=== PATIENT | male | born 1980 | race Two or more races ===

== ENCOUNTER 2024-08-31 14:19 | Outpatient (RCR) | payer MEDICAID, SELFPAY ==
--- NOTE | 2024-09-10 19:41 | CTCFLWUP_ITS ---
Patient: VIKKI LOWE : 1980 Page 5 of 7 FOLLOW UP NOTE DATE OF SERVICE: 08/31/2024 NAME: VIKKI LOWE ACCOUNT: [id number] : 1980 AGE: 44 INTERVAL HISTORY: Patient have no new symptoms. Denies any weight loss or appetite changes. Patient was only seen by Dr. Dover. ONCOLOGY HISTORY: DIAGNOSIS: Stage 1 ([place]) chronic lymphocytic leukemia, normal FISH CLL panel. TP53 unmutated, Ig VH somatic hyper mutation positive. DATE OF DIAGNOSIS: 09/07/2023 STAGE/TNM: CLL stage I TREATMENT HISTORY: Care?Plan Start?Date Cycle Day Intent HISTORY OF PRESENT ILLNESS: Mr. Lowe is a 44-year-old Kazakh speaking, Burundian male without any significant past medical history has the following oncology history. 07/16/2023: WBC 25.8, absolute lymphocyte count 18.7, hemoglobin 15.4, MCV 88, platelets 224,000, 07/29/2023: WBC 34.8, absolute lymphocyte count 27.6, hemoglobin 15.6, MCV 87, platelets 245,000. 09/07/2023: WBC 31.6, absolute lymphocyte count 24.9, hemoglobin 15.4, platelets 225,000. Flow cytometry? CLL FISH panel? 10/19/2023: CT scan of the chest abdomen and pelvis with IV contrast 11/22/2023: Quantitative immunoglobulin levels Ig VH analysis 03/14/2024: WBC 14.8, absolute lymphocyte count 39.9, hemoglobin 15.5, MCV 93, platelets 221,000. OTHER MEDICAL HISTORY/CONDITIONS: Denies Left?eye?surgery?=?3?yrs?ago FAMILY HISTORY: Sibling: Brother - Brain tumor - dx age 37 SOCIAL HISTORY: Occupational?History:?[employer] Education?Level:?Completed 9th grade Marital?Status:? Tobacco Use:?Smokes 7-8 cigarettes/day x 25 yrs - still smoking ETOH?Use:?Denies Drug?Note:?Denies Social History Note:?Lives with and children MEDICATIONS: 1. None Medications Last Reconciled by Jennifer Varela MA on 08/31/2024 ALLERGIES: No Known Drug Allergies REVIEW OF SYSTEMS: A complete 14-point review of systems was performed and is negative except as noted in interval history. PHYSICAL EXAMINATION: VITAL SIGNS: Temperature?98.5, B/P?126/83, Oxygen?Saturation?97% Weight?213.8?lbs PAIN: 0 - No pain GENERAL APPEARANCE: Appears well, in no apparent distress, appropriately interactive. HEENT: Normocephalic, no temporal wasting, normal conjunctiva, no scleral icterus, normal hearing, lips without lesions, neck normal range of motion. CARDIOVASCULAR: Not assessed. PULMONARY: Normal respiratory effort, no respiratory distress or use of accessory muscles, speaking in full sentences, no tachypnea. EXTREMITIES: No pedal edema or cyanosis. SKIN: Normal skin appearance. NEUROLOGIC: Alert and oriented x4. PSHYCHIATRIC: Appropriate affect, mood normal, behavior normal, intact thought and speech. LABORATORY DATA: I have personally reviewed and interpreted each of the patient?s relevant lab tests, abnormal findings are below: Date ASSESSMENT/PLAN: 1. Stage 1 ([place]) chronic lymphocytic leukemia, normal FISH CLL panel. TP53 unmutated, Ig VH somatic hyper mutation positive. 2. Patient continues to remain asymptomatic. 3. Mr. Lowe is a progressively having increase in his WBC count 4. recent CT scan showed bilateral small axillary lymph nodes as well as small para-aortic pericaval lymph nodes as well as hepatosplenomegaly. 5. Continues to smoke cigarettes 1. Since the patient is symptomatic I do not think treatment is warranted at this time. 2. Patient follows with leukemia specialist, Dr. Janie Mccoy of [place] for second opinion in view of his younger age. 3. I have advised him to stop smoking cigarettes. 4. I will see him back in clinic in 3 months with CBC, CMP done prior to the visit. CBC CMP LDH RETURN TO CLINIC: I will see him back in the clinic in 3 months. BILLING AND COMPLIANCE: I reviewed external records from providers outside my specialty as summarized above. I spent a total of 50 minutes on this patient?s care on the day of their visit excluding time spent related to any billed procedures. This time includes time spent with the patient as well as time spent documenting in the medical record, reviewing patients records and tests, obtaining history, placing orders, communicating with other healthcare professionals, counseling the patient, family or caregiver, and/or care coordination for the diagnoses above. Electronically Signed by: Chris Auguste MD T: 7:39 PM CC: PCP: Referring: Jay Benoit This document was completed utilizing speech recognition software. Grammatical errors, random word insertions, pronoun errors, and incomplete sentences are an occasional consequence of this system due to software limitations, ambient noise, and hardware issues. Any formal questions or concerns about the content, text or information contained within the body of this dictation should be directly addressed to the provider for clarification.
== END 2024-09-08 23:59 | disposition home or self-care (01) ==
LOC: SCTC 14:19
PROVIDERS: PCP Family Medicine; Referring Provider Family Medicine; Visit Provider Internal Medicine Hematology & Oncology
DX: C91.10 Chronic lymphocytic leukemia of B-cell type not having achieved remission (principal); R16.2 Hepatomegaly with splenomegaly, not elsewhere classified; F17.210 Nicotine dependence, cigarettes, uncomplicated; R59.0 Localized enlarged lymph nodes
CPT/HCPCS: 99212; G0463

== ENCOUNTER 2024-10-30 11:34 | Outpatient (RCR) | payer MEDICAID, SELFPAY ==
--- NOTE | 2024-10-31 01:39 | CTCFLWUP_ITS ---
Patient: VIKKI LOWE : 1980 Page 5 of 7 FOLLOW UP NOTE DATE OF SERVICE: 10/30/2024 NAME: VIKKI LOWE ACCOUNT: [id number] : 1980 AGE: 44 INTERVAL HISTORY: Patient have no new symptoms. Denies any weight loss or appetite changes. Patient was only seen by Dr. Dover. ONCOLOGY HISTORY: DIAGNOSIS: Stage 1 ([place]) chronic lymphocytic leukemia, normal FISH CLL panel. TP53 unmutated, Ig VH somatic hyper mutation positive. DATE OF DIAGNOSIS: 09/07/2023 STAGE/TNM: CLL stage I TREATMENT HISTORY: Care?Plan Start?Date Cycle Day Intent HISTORY OF PRESENT ILLNESS: Mr. Lowe is a 44-year-old Bengali speaking, Yemeni male without any significant past medical history has the following oncology history. 07/16/2023: WBC 25.8, absolute lymphocyte count 18.7, hemoglobin 15.4, MCV 88, platelets 224,000, 07/29/2023: WBC 34.8, absolute lymphocyte count 27.6, hemoglobin 15.6, MCV 87, platelets 245,000. 09/07/2023: WBC 31.6, absolute lymphocyte count 24.9, hemoglobin 15.4, platelets 225,000. Flow cytometry? CLL FISH panel? 10/19/2023: CT scan of the chest abdomen and pelvis with IV contrast 11/22/2023: Quantitative immunoglobulin levels Ig VH analysis 03/14/2024: WBC 14.8, absolute lymphocyte count 39.9, hemoglobin 15.5, MCV 93, platelets 221,000. OTHER MEDICAL HISTORY/CONDITIONS: Denies Left?eye?surgery?=?3?yrs?ago FAMILY HISTORY: Sibling: Brother - Brain tumor - dx age 37 SOCIAL HISTORY: Occupational?History:?[employer] Education?Level:?Completed 9th grade Marital?Status:? Tobacco Use:?Smokes 7-8 cigarettes/day x 25 yrs - still smoking ETOH?Use:?Denies Drug?Note:?Denies Social History Note:?Lives with and children MEDICATIONS: 1. None Medications Last Reconciled by Yolette Watson MA on 10/30/2024 ALLERGIES: No Known Drug Allergies REVIEW OF SYSTEMS: A complete 14-point review of systems was performed and is negative except as noted in interval history. PHYSICAL EXAMINATION: VITAL SIGNS: Temperature?98.2, B/P?129/81, Oxygen?Saturation?97% Weight?214?lbs PAIN: 0 - No pain GENERAL APPEARANCE: Appears well, in no apparent distress, appropriately interactive. HEENT: Normocephalic, no temporal wasting, normal conjunctiva, no scleral icterus, normal hearing, lips without lesions, neck normal range of motion. CARDIOVASCULAR: Not assessed. PULMONARY: Normal respiratory effort, no respiratory distress or use of accessory muscles, speaking in full sentences, no tachypnea. EXTREMITIES: No pedal edema or cyanosis. SKIN: Normal skin appearance. NEUROLOGIC: Alert and oriented x4. PSHYCHIATRIC: Appropriate affect, mood normal, behavior normal, intact thought and speech. LABORATORY DATA: I have personally reviewed and interpreted each of the patient?s relevant lab tests, abnormal findings are below: Date ASSESSMENT/PLAN: 1. Stage 1 ([place]) chronic lymphocytic leukemia, normal FISH CLL panel. TP53 unmutated, Ig VH somatic hyper mutation positive. 2. Patient continues to remain asymptomatic. 3. Mr. Lowe is a progressively having increase in his WBC count 4. recent CT scan showed bilateral small axillary lymph nodes as well as small para-aortic pericaval lymph nodes as well as hepatosplenomegaly. 5. Continues to smoke cigarettes 1. Since the patient is symptomatic I do not think treatment is warranted at this time. 2. Bone marrow showed 66 percent cancer cells 3. I have advised him to stop smoking cigarettes. 4. I will see him back in clinic in 3 months with CBC, CMP done prior to the visit. CBC CMP LDH ORDERS: Order # Description [id number] Comprehensive Metabolic Panel - 12 + CBC with Auto Diff + Uric Acid, Serum [id number] Lactate Dehydrogenase (LDH) [id number] MD Follow Up 1 Year [id number] MD Follow Up 3 Months [id number] RETURN TO CLINIC: 3months with MUTUEL CLERK for lab check BILLING AND COMPLIANCE: I reviewed external records from providers outside my specialty as summarized above. I spent a total of 50 minutes on this patient?s care on the day of their visit excluding time spent related to any billed procedures. This time includes time spent with the patient as well as time spent documenting in the medical record, reviewing patients records and tests, obtaining history, placing orders, communicating with other healthcare professionals, counseling the patient, family or caregiver, and/or care coordination for the diagnoses above. Electronically Signed by: Chris Auguste MD T: 1:37 AM CC: PCP: Referring: Chris Auguste This document was completed utilizing speech recognition software. Grammatical errors, random word insertions, pronoun errors, and incomplete sentences are an occasional consequence of this system due to software limitations, ambient noise, and hardware issues. Any formal questions or concerns about the content, text or information contained within the body of this dictation should be directly addressed to the provider for clarification.
== END 2024-11-06 23:59 | disposition home or self-care (01) ==
LOC: SCTC 11:34
PROVIDERS: Referring Provider Internal Medicine Hematology & Oncology; Visit Provider Internal Medicine Hematology & Oncology
DX: C91.10 Chronic lymphocytic leukemia of B-cell type not having achieved remission (principal); R16.2 Hepatomegaly with splenomegaly, not elsewhere classified; F17.210 Nicotine dependence, cigarettes, uncomplicated; Z71.6 Tobacco abuse counseling
CPT/HCPCS: 99212; G0463

== ENCOUNTER 2024-12-08 18:03 | Emergency (ER) | payer MEDICAID, SELFPAY ==
[2024-12-08 18:41] VITALS: BP 103/65; PULSE 103; RESP 18; TEMP 39.1; O2SAT 95; BMI 29.6
--- NOTE | 2024-12-08 18:52 | XR_ITS ---
Examination: CT chest with intravenous contrast CT abdomen with intravenous contrast CT pelvis with intravenous contrast 2-D coronal and sagittal reconstructions Time of exam: December 08, [address] chest abdomen pelvis October 19, 2023 INDICATIONS: Diagnosis leukemia, fever chills today CTDI: vol (mGy) : 7.98 DLP: (mGycm): 645 Technique: Multiple axial images of the chest, abdomen and pelvis with intravenous contrast, 3.0 mm slice thickness. Images obtained post intravenous injection Isovue 370 60 cc. 2-D sagittal and coronal reconstructions. Low dose protocols were performed. One or more of the following dose reduction techniques were used; automated exposure control, adjustment of the mA and/or KV according to patient size, use of iterative reconstruction technique. Findings: No thoracic aortic aneurysm dilatation Pulmonary artery segments are not enlarged Pulmonary artery opacification is poor Mild opacity in the mid and lower lung zones consistent with pneumonia Hepatomegaly 20 exam, splenomegaly 17 exam Contracted gallbladder No pancreatic or adrenal mass No renal or ureteral calculi, lower pole benign right renal cyst Numerous mesenteric pericaval periaortic pelvic lymph nodes which are more prominent compared to the prior study Mild small bowel ileus versus enteritis No bowel obstruction Normal appendix No diverticulitis Mild thickening urinary bladder wall No prostatomegaly Fat-containing hernias Moderate osteopenia IMPRESSION: Pneumonia in the mid and lower lung zones bilaterally Significant hepatosplenomegaly More prominent mesenteric abdominal and pelvic lymphadenopathy compared to October 19, 2023 No abdominal or pelvic abscess
--- NOTE | 2024-12-08 19:01 | EDNOTE_ITS ---
<Statement entered by Little Baca MD - 12/10/24 04:27> As co-signing physician, I was present and available for consult prn. I concur with the plan and care as documented by the midlevel provider. ED Back Injury Pain RME/HPI General Chief Complaint: Abdominal Pain Stated Complaint: ABD PAIN, FEVER X 2 DAYS Time Seen by Provider: 12/08/24 18:54 Arrival date/time: 12/08/24 18:03 44M with history of CLL presents to ED with 2 days of back pain and fevers/chills and some N/V. Patient denies ab pain, diarrhea, and dysuria, as well as URI symptoms. Limitations: no limitations Related Data Previous Rx's ?Medication ?Instructions ?Recorded doxycycline hyclate 100 mg capsule 100 mg PO BID #14 c aps 03/01/23 amoxicillin 875 mg-potassium 1 tab PO BID 7 days #14 t abs 12/08/24 clavulanate 125 mg tablet doxycycline hyclate 100 mg tablet 100 mg PO BID 7 days #14 tabs 12/08/24 Allergies Allergy/AdvReac Type Severity Reaction Status Date / Time No Known Allergies Allergy Verified 12/08/24 18:05 Review of Systems Review of Systems Systems Reviewed: All systems reviewed, normal except as documented Constitutional Constitutional: Reports system reviewed and no additional complaints, except as documented, Reports as per HPI, Reports chills, Reports fever(s) and Denies headache(s) ENT Ears, Nose, Mouth, and Throat: Denies disequilibrium and Denies headache(s) Cardiovascular Cardiovascular: Reports system reviewed and no additional complaints, except as documented, Denies chest pain and Denies dyspnea Respiratory Respiratory: Reports system reviewed and no additional complaints, except as documented, Denies cough and Denies dyspnea Gastrointestinal Gastrointestinal: Reports system reviewed and no additional complaints, except as documented, Denies abdominal pain, Denies nausea and Denies vomiting Musculoskeletal Musculoskeletal: Reports as per HPI and Reports back pain Neurologic Neurologic: Reports system reviewed and no additional complaints, except as documented, Denies confusion, Denies disequilibrium and Denies headache(s) Psychiatric Psychiatric: Denies confusion Past Medical History Past Medical History HEMATOLOGIC: Positive Leukemia Social History SMOKING STATUS: Never smoker ED Exam General Limitations: Present no limitations General appearance: Present alert and in no apparent distress Head Head exam: Present atraumatic Eye Eye exam: Present normal appearance, PERRL and EOMI ENT ENT exam: Present normal exam, normal oropharynx and mucous membranes moist Neck Neck exam: Present normal inspection, full ROM and trachea midline Chest Chest inspection: Present normal inspection and symmetric chest wall rise Respiratory Respiratory exam: Present normal lung sounds bilaterally Cardiovascular Cardiovascular exam: Present regular rate, normal rhythm and normal heart sounds Abdominal Exam Abdominal exam: Present soft and normal bowel sounds Extremities Exam Extremities exam: Present normal inspection and full ROM Back Exam Back exam: Present full ROM and tenderness Neurological Exam Neurological exam: Present alert, oriented X3 and CN II-XII intact Psychiatric Psychiatric exam: Present normal affect and normal mood Skin Skin exam: Present warm, dry, intact and normal color Course Quality Measures none Orders Category Date Time Status Bedside COVID-19 Antigen Test NOW Care 12/08/24 18:52 Completed Bedside Influenza A&B Antigen Test NOW Care 12/08/24 18:[address] Screening NOW Care 12/08/24 18:52 Completed Insert IV NOW Care 12/08/24 18:[address] chest abdomen pelvis w Stat Exams 12/08/24 18:52 Completed Blood Culture (Lab) Stat Lab 12/08/24 19:09 Received CBC Stat Lab 12/08/24 19:09 Completed CMP [Comprehensive Metabolic Panel] Stat Lab 12/08/24 19:09 Completed Drug Screen,Urine Stat Lab 12/08/24 22:45 Completed Lactate (Lactic Acid) Stat Lab 12/08/24 19:09 Completed Path Review Blood Smear Stat Lab 12/08/24 19:09 Completed Procalcitonin Stat Lab 12/08/24 19:09 Completed UA [Urinalysis] Stat Lab 12/08/24 22:45 Completed Urine Culture Stat Lab 12/08/24 22:45 Received Acetaminophen Tab [Tylenol ES Tab] Med 12/08/24 18:52 Discontinued 500 mg PO X1 ONE Doxycycline Inj [Vibramycin Inj] 100 mg Med 12/08/24 23:22 Discontinued Sodium Chloride 0.9% (Pop) [NS 0.9% mini bag] 100 ml IV X1 Ketorolac Inj [Toradol Inj] Med 12/08/24 18:52 Discontinued 30 mg IVP X1 ONE Morphine Inj Med 12/08/24 21:18 Discontinued 5 mg IVP X1 ONE Piper/Tazo 3.375 gm Premix [Zosyn] Med 12/08/24 18:53 Discontinued 3.375 gm in 50 ml IV X1 Sodium Chloride 0.9% 1000 ml [Ns] 1,000 ml Med 12/08/24 18:52 Discontinued IV 999 mls/hr Sodium Chloride 0.9% 1000 ml [Ns] 1,000 ml Med 12/08/24 22:30 Discontinued IV 999 mls/hr Vital Signs Vital signs: Vital Signs Temperature 102.4 F H 12/08/24 18:41 Pulse Rate 103 H 12/08/24 18:41 Respiratory Rate 18 12/08/24 18:41 Blood Pressure 103/65 12/08/24 18:41 Pulse Oximetry (%) 95 12/08/24 18:41 Oxygen Delivery Method Room Air 12/08/24 18:41 O2 at 95% on RA and WNLs Back Pain / Injury MDM Narrative MDM Narrative:: 44M with history of CLL presents to ED with 2 days of back pain and fevers/chills and some N/V. Patient denies ab pain, diarrhea, and dysuria, as well as URI symptoms. Physical exam reveals flank pain. Patient is febrile, but does not appear toxic. Sepsis alert called. CT reveals PNA. Significant leukocytosis, likely from acute infection compounding on existing CLL. Procal/lactate normal. CMP unremarkable. UA clean. Upon reassessment, patient is feeling better after meds. Patient does not want to be admitted. Scrap Collector and meds given. Patient data External records reviewed:: [facility] previous records Clinical information provided by:: patient Social determinants that could affect healthcare access:: none Patient has the following chronic illnesses:: CLL How is presenting disease/condition affected by chronic disease/condition?: exacerbated by Evaluation data The following diagnostics were reviewed and interpreted by me:: lab results and radiology exam(s) Lab and/or radiology exams considered but not ordered:: ordered Interpretation Summary: above Medications / Prescriptions Medications or Prescriptions considered but not ordered:: ordered Medication administrations:: Medication Administration History Discontinued Medications Acetaminophen (Acetaminophen 500 Mg Tablet) 500 mg PO X1 ONE Stop: 12/08/24 18:53 Last Admin: 12/08/24 20:33 Dose: 500 mg Documented By: JADA Sodium Chloride (Ns) 1,000 mls @ 999 mls/hr IV .Q1H1M ONE Stop: 12/08/24 19:52 Last Infusion: 12/08/24 21:58 Dose: Infused Documented By: Admin: 12/08/24 20:29 Dose: 999 mls/hr Documented By: JADA Piperacillin/Tazobactam/Dextrose (Zosyn) 3.375 gm in 50 mls @ 100 mls/hr IV X1 ONE Stop: 12/08/24 19:22 Last Infusion: 12/08/24 21:08 Dose: Infused Documented By: Admin: 12/08/24 20:30 Dose: 100 mls/hr Documented By: JADA Sodium Chloride (Ns) 1,000 mls @ 999 mls/hr IV .Q1H1M ONE Stop: 12/08/24 23:30 Last Infusion: 12/08/24 23:55 Dose: Infused Documented By: Admin: 12/08/24 22:51 Dose: 999 mls/hr Documented By: JADA Doxycycline Hyclate 100 mg/ (Sodium Chloride) 100 mls @ 100 mls/hr IV X1 ONE Stop: 12/09/24 00:21 Last Infusion: 12/09/24 00:42 Dose: Infused Documented By: Admin: 12/08/24 23:36 Dose: 100 mls/hr Documented By: Ketorolac Tromethamine (Ketorolac Inj 30 Mg/Ml Vial) 30 mg IVP X1 ONE Stop: 12/08/24 18:53 Last Admin: 12/08/24 20:34 Dose: 30 mg Documented By: JADA Morphine Sulfate (Morphine Sulf Inj 10 Mg/Ml Vial) 5 mg IVP X1 ONE Stop: 12/08/24 21:19 Last Admin: 12/08/24 21:55 Dose: 5 mg Documented By: JADA above Consultations Consultation(s) initiated? (list below): No Diagnosis Differential diagnosis back pain/injury: lumbar radiculopathy, sciatica, strain of lumbar region, renal colic, pyelonephritis, thoracic back pain, AAA, discitis and other (PNA) Most likely diagnosis given after review of the tests above:: PNA Admission Indicated Admission indicated?: not indicated Admission Request Was there a request for admission?: No Disposition Plan Disposition Plan: Discharge Discharge Attestation Discharge Attestation: The patient and all family members were given an opportunity to ask questions and understood the discharge instructions. Discharge instructions specifically effects, indications for sooner follow up or return to the emergency department, and the expected course of current diagnosis. Patient condition: Stable Discharge Plan Plan Patient Disposition: HOME (Self Care) Discharge Disposition comment: Stable Prescriptions/Referrals Prescriptions/Med Rec: New amoxicillin-pot clavulanate 875-125 mg tablet 1 tab PO BID 7 Days Qty: 14 0RF doxycycline hyclate 100 mg tablet 100 mg PO BID 7 Days Qty: 14 0RF No Action doxycycline hyclate 100 mg capsule 100 mg PO BID Qty: 14 0RF Referrals: Chris Auguste MD [Primary Care Provider] - In 1 week Problem List Clinical Impression: Pneumonia Patient/Caregiver Discharge Instructions Education Materials: ED Pneumonia (Adult) Additional Instructions: Please follow-up with PCP within 24-48 hours and return immediately if symptoms worsen. Print Language: Latvian Stand Alone Forms: Patient Portal Info Letter HILARIA/DORA Supervising Physician HILARIA/DORA Supervising Physician: Dr. Baca
[2024-12-08 19:20] VITALS: BP 114/67; PULSE 95; RESP 19; TEMP 37.6; O2SAT 92
[2024-12-08 19:20] LABS: Lactate (Lactic Acid) 0.9 mMol/L (0.4-2.0)
[2024-12-08 19:24] LABS: Basophils # (Auto) 0.2 Thou/mm3 (0.0-0.2); Basophils % (Auto) 0 % (0-2.5); Eosinophils # (Auto) 0.1 Thou/mm3 (0.0-0.5); Eosinophils % (Auto) 0 % (0-10); Hematocrit 40.9 % (41.0-53.0); Hemoglobin 14.1 g/dL (13.5-16.0); Immature Granulocytes % (Auto) 0 % (0-0); Immature Granulocytes Auto 0.15 Thou/mm3 (0.00-0.00); Lymphocytes # (Auto) 37.6 Thou/mm3 (1.0-4.8); Lymphocytes % (Auto) 80 % (10-50); Mean Corpuscular HGB Conc 34.5 g/dl (31.0-37.0); Mean Corpuscular Hemoglobin 29.6 pg (25.0-35.0); Mean Corpuscular Volume 86 fL (80-100); Monocytes # (Auto) 2.5 Thou/mm3 (0.0-0.8); Monocytes % (Auto) 5 % (0-12); Neutrophils # (Auto) 6.4 Thou/mm3 (1.8-7.7); Neutrophils % (Auto) 14 % (37-80); Nucleated Red Blood Cell % 0 /100 WBC (0); Platelet Count 156 Thou/mm3 (140-440); RDW Standard Deviation 43.5 fL (35.1-43.9); Red Blood Count 4.77 Miln/mm3 (4.50-5.90)
[2024-12-08 19:53] LABS: White Blood Count 46.8 Thou/mm3 (3.8-10.6)
[2024-12-08 19:58] LABS: Alanine Aminotransferase 20 U/L (10-49); Albumin, Serum 4.7 gm/dL (3.5-5.0); Albumin/Globulin Ratio 2.1 (1.2-2.2); Alkaline Phosphatase 50 U/L (46-116); Anion Gap 5 (7-16); Aspartate Amino Transferase 20 U/L (0-34); BUN/Creatinine Ratio 13 Ratio (12-20); Bilirubin,Total 0.4 mg/dL (0.3-1.2); Blood Urea Nitrogen 14 mg/dL (9-23); Calcium 9.4 mg/dL (8.3-10.6); Calcium (Corrected) 9.4 mg/dL (8.5-10.1); Carbon Dioxide 23.9 mMol/L (20.0-31.0); Chloride 106 mMol/L (98-107); Creatinine (Component) 1.1 mg/dL (0.6-1.3); Estimated Creatinine Clearance 100.5 mL/min (>60); Globulin 2.2 gm/dL (2.3-3.5); Glucose 107 mg/dL (74-106); Osmolality,Calculated 270 (275-295); Potassium 4.3 mMol/L (3.4-5.1); Procalcitonin 0.17 ng/ml (0.0-0.49); Sodium 135 mMol/L (136-145); Total Protein 6.9 gm/dL (5.7-8.2); eGFR > 60 See Note
[2024-12-08] MEDS: SODIUM CHLORIDE 0.9% 1000 ML 1,000 ML 999 ML IV ×2 (20:29→22:51)
[2024-12-08] MEDS: PIPER/TAZO 3.375 GM PREMIX 3.375 GM/50 ML BAG IV (20:30)
[2024-12-08] MEDS: ACETAMINOPHEN 500 MG TABLET PO (20:33)
[2024-12-08] MEDS: KETOROLAC INJ 30 MG/ML VIAL IVP (20:34)
[2024-12-08 20:45] LABS: Path Review Blood Smear Sent to Pathologist
[2024-12-08 20:59] VITALS: BP 114/73; PULSE 85; RESP 18; TEMP 37.7; O2SAT 96
[2024-12-08] MEDS: MORPHINE SULF INJ 10 MG/ML VIAL 5 MG IVP (21:55)
[2024-12-08 22:49] LABS: Collection Type, Urine Clean Catch
[2024-12-08 22:59] LABS: Bilirubin,Urine Negative (Negative); Blood,Urine 1+ (Negative); Clarity,Urine Clear (Clear/Hazy); Color,Urine Lt-Yellow (Lt Yel-Yel); Glucose, Urine Negative (Negative); Ketones,Urine Trace (Negative); Leukocyte Esterase,Urine Negative (Negative); Nitrite,Urine Negative (Negative); Protein,Urine Trace (Neg - Trace); RBC,Urine 21 /hpf (0-3); Squamous Epithelial Cell,Urine < 1 /hpf (0-5); Urobilinogen,Urine Negative mg/dL (0.0-1.0); WBC,Urine 1 /hpf (0-5)
[2024-12-08 23:02] LABS: Specific Gravity,Urine 1.015 (1.001-1.035)
[2024-12-08 23:35] VITALS: BP 107/64; PULSE 70; RESP 17; TEMP 37.1; O2SAT 96
[2024-12-08] MEDS: DOXYCYCLINE INJ 100 MG in SODIUM CHLORIDE 0.9% (POP) 100 ML IV (23:36)
[2024-12-08 23:51] LABS: Amphetamine/Methamp Scrn,U Negative (Negative); Barbiturate Screen,Urine Negative (Negative); Benzodiazepines Screen,Urine Negative (Negative); Benzoylecgonine Screen, Ur Negative (Negative); Fentanyl Screen,Urine Negative (Negative); Opiate Screen,Urine Positive (Negative); THC Screen,Urine Negative (Negative)
[2024-12-09 00:43] VITALS: BP 108/68; PULSE 79; RESP 18; O2SAT 98
== END 2024-12-09 00:44 | disposition home or self-care (01) ==
PROVIDERS: Physician Assistant; Emergency Provider Emergency Medicine; PCP Internal Medicine Hematology & Oncology
DX: J18.9 Pneumonia, unspecified organism (principal); C91.10 Chronic lymphocytic leukemia of B-cell type not having achieved remission
CPT/HCPCS: 36415; 71260; 74177; 80053; 80307; 81001; 83605; 84145; 85025; 87040; 87086; 87400; 87811; 96361; 96365; 96367; 96375; 99285; A4649; J1885; J2270; J2543; J3490; J7030; Q9967; A9270

== ENCOUNTER 2025-04-04 13:28 | Outpatient (RCR) | payer MEDICAID, SELFPAY | END 2025-04-08 23:59 | disposition home or self-care (01) | LOC: SCTC 13:28 | PROVIDERS: Referring Provider Nurse Practitioner Family; Visit Provider Nurse Practitioner Family | DX: C91.10 Chronic lymphocytic leukemia of B-cell type not having achieved remission (principal); D72.829 Elevated white blood cell count, unspecified; R16.2 Hepatomegaly with splenomegaly, not elsewhere classified; F17.210 Nicotine dependence, cigarettes, uncomplicated; Z71.6 Tobacco abuse counseling | CPT/HCPCS: 99212; G0463 ==

== ENCOUNTER 2025-07-17 10:27 | Outpatient (RCR) | payer MEDICAID, SELFPAY ==
--- NOTE | 2025-07-17 13:07 | CTCFLWUP_ITS ---
Patient: VIKKI LOWE : 1980 Page 2 of 2 FOLLOW UP NOTE DATE OF SERVICE: 07/17/2025 NAME: VIKKI LOWE ACCOUNT: [id number] : 1980 AGE: 45 INTERVAL HISTORY: Summary --patient is in for follow up visit. He remains asymptomatic with good energy and appetite.patient had PET/CT scan at [facility] . He has appointment on [address] Dover. Patient do not have any new changes in his appetite or weight loss or any B symptoms. Denies any swelling or early satiety. Plan is to follow-up with the hematology at [facility] and follow-up with us only as needed. Plan discussed with Mr. Lowe and patient agreed with the help of Chinese bilingual interpreter ONCOLOGY HISTORY: DIAGNOSIS: Stage 1 ([place]) chronic lymphocytic leukemia, normal FISH CLL panel. TP53 unmutated, Ig VH somatic hyper mutation positive. DATE OF DIAGNOSIS: 09/07/2023 STAGE/TNM: CLL stage I TREATMENT HISTORY: Care?Plan Start?Date Cycle Day Intent HISTORY OF PRESENT ILLNESS: Mr. Lowe is a 45-year-old Chinese speaking, [place] male without any significant past medical history has the following oncology history. 07/16/2023: WBC 25.8, absolute lymphocyte count 18.7, hemoglobin 15.4, MCV 88, platelets 224,000, 07/29/2023: WBC 34.8, absolute lymphocyte count 27.6, hemoglobin 15.6, MCV 87, platelets 245,000. 09/07/2023: WBC 31.6, absolute lymphocyte count 24.9, hemoglobin 15.4, platelets 225,000. Flow cytometry? CLL FISH panel? 10/19/2023: CT scan of the chest abdomen and pelvis with IV contrast 11/22/2023: Quantitative immunoglobulin levels Ig VH analysis 03/14/2024: WBC 14.8, absolute lymphocyte count 39.9, hemoglobin 15.5, MCV 93, platelets 221,000. OTHER MEDICAL HISTORY/CONDITIONS: Denies Left?eye?surgery?=?3?yrs?ago FAMILY HISTORY: Sibling: Brother - Brain tumor - dx age 37 SOCIAL HISTORY: Occupational?History:?[employer] Education?Level:?Completed 9th grade Marital?Status:? Tobacco Use:?Smokes 7-8 cigarettes/day x 25 yrs - still smoking ETOH?Use:?Denies Drug?Note:?Denies Social History Note:?Lives with and children MEDICATIONS: 1. fluconazole - 200 mg 1 tab Weekly Medications Last Reconciled by Jennifer Varela MA on 07/17/2025 ALLERGIES: No Known Drug Allergies REVIEW OF SYSTEMS: A complete 14-point review of systems was performed and is negative except as noted in interval history. PHYSICAL EXAMINATION: VITAL SIGNS: Temperature?97.4, B/P?126/78, Oxygen?Saturation?97% Weight?223?lbs PAIN: 0 - No pain ECOG Performance Status: 0 - Asymptomatic and fully active GENERAL APPEARANCE: Appears well, in no apparent distress, appropriately interactive. HEENT: Normocephalic, no temporal wasting, normal conjunctiva, no scleral icterus, normal hearing, lips without lesions, neck normal range of motion. CARDIOVASCULAR: Not assessed. PULMONARY: Normal respiratory effort, no respiratory distress or use of accessory muscles, speaking in full sentences, no tachypnea. EXTREMITIES: No pedal edema or cyanosis. SKIN: Normal skin appearance. NEUROLOGIC: Alert and oriented x4. PSHYCHIATRIC: Appropriate affect, mood normal, behavior normal, intact thought and speech. LABORATORY DATA: I have personally reviewed and interpreted each of the patient?s relevant lab tests, abnormal findings are below: Date 12/08/24 ??WHITE?BLOOD?COUNT?(Thou/mm3) 46.8?HH ??RED?BLOOD?COUNT?(Miln/mm3) 4.77 ??HEMOGLOBIN?(gm/dl) 14.1 ??HEMATOCRIT?(%) 40.9?L ??PLATELET?COUNT?(Thou/mm3) 156 ??NEUTROPHILS?%,?AUTO?(%) 14?L ??LYMPH?%,?AUTO?(%) 80?H ??NEUTROPHILS,?AUTO?(Thou/mm3) 6.4 ??GLUCOSE,RANDOM?(mg/dL) 107?H ??BLOOD?UREA?NITROGEN?(mg/dL) 14 ??CREATININE?(mg/dL) 1.10 ??SODIUM?(mmol/L) 135?L ??POTASSIUM?(mmol/L) 4.3 ??CHLORIDE?(mmol/L) 106 ??CrCl?(CandG)?(ml/min) 116.43 ??AST/SGOT?(Unit/L) 20 ??ALT/SGPT?(Unit/L) 20 ??ALKALINE?PHOSPHATASE?(Unit/L) 50 ??BILIRUBIN,?TOTAL?(mg/dL) 0.4 ??PROTEIN?TOTAL?(gm/dl) 6.9 ??ALBUMIN,?SERUM?(gm/dl) 4.7 ??GLOBULIN?(gm/dl) 2.2?L ??ALBUMIN/GLOBULIN?RATIO 2.1 ??CALCIUM,?SERUM?(mg/dL) 9.4 ??CALCIUM?SERUM?(CORRECTED)?(mg/dL) 9.4 ASSESSMENT/PLAN: Chronic Lymphocytic Leukemia (CLL) Stage 1 ([place]) chronic lymphocytic leukemia, normal FISH CLL panel. TP53 unmutated, Ig VH somatic hyper mutation positive. Assessment: He remains asymptomatic despite progressively increasing white blood cell counts. CT showed bilateral small axillary lymph nodes, small parathyroid pericable lymph nodes, and hepatomegaly (10/2023). Bone marrow biopsy showed 66% cancer cells (10/05/2024). Current white blood cell count is 74,000, increased from 68,000 in January. LDH is within normal limits. No anemia, no thrombocytopenia. Patient denies pain, swelling, lumps, fevers, or weight loss. He reports good energy and appetite. No treatment needed at this time. Plan: -Follow-up with Dr. Dover at [facility] and hematology department Advised patient that he does not need to follow-up with us until or unless patient needs some local care Tobacco Use Assessment: Patient is a current smoker, reporting heavy cigarette use daily. He is not ready to quit at this time. Plan: - Continue to monitor and address smoking cessation readiness at future visits ORDERS: Order # Description [id number] Comprehensive Metabolic Panel - 12 + CBC with Auto Diff [id number] MD Follow Up 6 Month [id number] Uric Acid, Serum [id number] Lactate Dehydrogenase (LDH) [id number] RETURN TO CLINIC: I reviewed the diagnosis, prognosis, and recommended treatment/procedure options with the patient (and/or their legal medicare sales representative), including the potential benefits, risks, side effects and alternative therapies. We also discussed the option of no treatment and the possibility of clinical trial participation, if applicable. All questions were addressed, and they demonstrated understanding. They provided informed consent to proceed with the proposed plan of care. BILLING AND COMPLIANCE: I reviewed external records from providers outside my specialty as summarized above. I spent a total of 50 minutes on this patient?s care on the day of their visit excluding time spent related to any billed procedures. This time includes time spent with the patient as well as time spent documenting in the medical record, reviewing patients records and tests, obtaining history, placing orders, communicating with other healthcare professionals, counseling the patient, family or caregiver, and/or care coordination for the diagnoses above. Electronically Signed by: Chris Auguste MD T: 1:05 PM CC: PCP: Referring: Reshma Lainez This document was completed utilizing speech recognition software. Grammatical errors, random word insertions, pronoun errors, and incomplete sentences are an occasional consequence of this system due to software limitations, ambient noise, and hardware issues. Any formal questions or concerns about the content, text or information contained within the body of this dictation should be directly addressed to the provider for clarification.
== END 2025-08-08 23:59 | disposition home or self-care (01) ==
LOC: SCTC 10:27
PROVIDERS: PCP Family Medicine; Referring Provider Nurse Practitioner Family; Visit Provider Nurse Practitioner Family
DX: C91.10 Chronic lymphocytic leukemia of B-cell type not having achieved remission (principal); R16.0 Hepatomegaly, not elsewhere classified; F17.210 Nicotine dependence, cigarettes, uncomplicated
CPT/HCPCS: 99212; G0463